=== PATIENT | female | born 1985 | race Two or more races ===

== ENCOUNTER 2024-04-03 19:45 | Emergency (ER) | payer SELFPAY ==
--- NOTE | 2024-04-03 20:41 | ER ---
Nurse's Notes [facility] Name: Rima Escobar Age: 39 yrs Sex: Female : 1985 Arrival Date: 04/03/2024 Time: 19:45 Bed 18 Private MD: Diagnosis: Alcohol abuse Presentation: 04/03 19:57 Chief complaint: EMS states: unresponsive upon arrival to scene. ETOH on board. Patient cp4 alert and talking upon arrival to ED. Coronavirus screen: Client denies travel out of the [place] in the last 14 days. At this time, the client does not indicate any symptoms associated with coronavirus-19. Ebola Screen: Patient negative for fever greater than or equal to 101.5 degrees Fahrenheit, and additional compatible Ebola Virus Disease symptoms Patient denies exposure to infectious person. Patient denies travel to an Ebola-affected area in the 21 days before illness onset. No symptoms or risks identified at this time. Initial Sepsis Screen: Does the patient meet any 2 criteria? HR > 90 bpm. No. Patient's initial sepsis screen is negative. Does the patient have a suspected source of infection? No. Patient's initial sepsis screen is negative. Risk Assessment: Do you want to hurt yourself or someone else? Patient reports no desire to harm self or others. Onset of symptoms was April 03, 2024. 19:57 Method Of Arrival: EMS: [facility] cp4 19:57 Acuity: DEEDEE 3 cp4 Triage Assessment: 19:59 General: Appears in no apparent distress. comfortable, Behavior is agitated. Pain: cp4 Denies pain. EENT: No deficits noted. Neuro: Level of Consciousness is awake, alert, obeys commands, Oriented to person, place, situation. Cardiovascular: No deficits noted. Respiratory: Airway is patent Respiratory effort is even, unlabored. GI: No deficits noted. : No deficits noted. Derm: No deficits noted. Musculoskeletal: No deficits noted. 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 - Infectious Disease History:: Denies. - Social history:: Smoking status: Patient denies any tobacco usage or history of. Screenin:01 [facility] ED Fall Risk Assessment (Adult) History of falling in the last 3 months, cp4 including since admission No falls in past 3 months (0 pts) Confusion or Disorientation No (0 pts) Intoxicated or Sedated Yes (3 pts) Impaired Gait No (0 pts) Mobility Assist Device Used No (0 pt) Altered Elimination No (0 pt) Score/Fall Risk Level 0 - 2 = Low Risk Oriented to surroundings, Maintained a safe environment, Assessed \\T\\ reinforced patient's understanding of fall precautions, Hourly rounding (assess needs \\T\\ fall precautionary measures) done. Abuse screen: Denies threats or abuse. Nutritional screening: No deficits noted. Tuberculosis screening: No symptoms or risk factors identified. Assessment: 20:01 Reassessment: No changes from previously documented assessment. cp4 20:02 Reassessment: Patient refusing treatment. Friend called to come pick her up per patient cp4 request. Psych: 20:41 [place] Suicide Severity Screening: In the past month, have you wished you were cp4 or wished you could go to sleep and not wake up? Patient responds "No." "In the past month, have you actually had any thoughts of killing yourself?" Patient responds "no." "In your lifetime, have you ever done anything, started to do anything, or prepared to do anything to end your life?" Patient responds "no.". Subjective: Patient's mood is irritable. Objective: Patient is uncooperative, belligerent, Speech is normal. Interventions: no person items. Safety Checks: Pt has been placed in a hallway bed/chair. Patient uses. Commitment: none. Vital Signs: 19:57 BP 97 / 69; Pulse 93; Resp 18; Temp 97.8; Pulse Ox 100% ; Pain 0/10; cp4 20:45 BP 98 / 56; Pulse 84; Resp 17; Temp 97.8; Pulse Ox 100% ; cp4 19:57 Pain Scale: Adult cp4 ED Course: 19:49 Patient arrived in ED. cp4 19:50 Melchor Reyna MD is Attending Physician. bo1 19:51 Valencia Ashby [facility]NP-C [facility]. kb 19:57 Sabrina Yusuf is Primary Nurse. cp4 19:59 Triage completed. cp4 19:59 Arm band placed on right wrist. Patient placed in an exam room, on a stretcher. cp4 20:01 Bed in low position. Call light in reach. Side rails up X2. Provided Education on: ETOH.cp4 20:01 No provider procedures requiring assistance completed. cp4 20:43 Patient did not have IV access during this emergency room visit. cp4 20:53 Primary Nurse role handed off by Sabrina Yusuf Administered Medications: 20:39 Not Given (Patient Refused): ns 0.9% 1000 ml IV at 1000 ml once cp4 Medication: 20:01 VIS not applicable for this client. cp4 Outcome: 20:43 AMA AMA form signed cp4 20:43 Condition: stable 20:43 Instructed on follow up and referral plans. 20:47 Patient left the ED. cp4 20:54 Discharge ordered by . angel 20:54 Patient left the ED. kb Signatures: Valencia Ashby, JEYSON-C INDUSTRIAL BOILERMAKER-Sabrina Joshua cp4 Dominiquei, MD LIZ Roche bo1
[2024-04-03 20:53] VITALS: TEMP 97.8; O2SAT 100
[2024-04-03 20:54] VITALS: BP 98/56
--- NOTE | 2024-04-03 20:54 | EDPHYS ---
Physician Documentation [facility] Name: Rima Escobar Age: 39 yrs Sex: Female : 1985 Arrival Date: 04/03/2024 Time: 19:45 Bed 18 Private MD: ED Physician Melchor Reyna HPI: 04/03 21:04 This 39 yrs old [place] Female presents to ER via EMS with complaints of ETOH Abuse. kb 21:04 Pt is a 39 year old female who presents for etoh intoxication. EMS reports they were kb toned out for unresponsive patient. Pt is awake and alert upon arrival to ED. . 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 - Infectious Disease History:: Denies. - Social history:: Smoking status: Patient denies any tobacco usage or history of. ROS: 21:01 Constitutional: As per HPI kb Exam: 21:01 Constitutional: This is a well developed, well nourished patient who is awake, alert, kb and in no acute distress. Head/Face: Normocephalic, atraumatic. ENT: Moist Mucous membranes Cardiovascular: Regular rate Respiratory: Respirations even and unlabored. No increased work of breathing. Talking in full sentences Skin: Warm, dry with normal turgor. Normal color. MS/ Extremity: Pulses equal, no cyanosis. Neurovascular intact. Full, normal range of motion. Neuro: Awake and alert, GCS 15, oriented to person, place, time, and situation. Moves all extremities. Vital Signs: 19:57 BP 97 / 69; Pulse 93; Resp 18; Temp 97.8; Pulse Ox 100% ; Pain 0/10; cp4 20:45 BP 98 / 56; Pulse 84; Resp 17; Temp 97.8; Pulse Ox 100% ; cp4 19:57 Pain Scale: Adult cp4 MDM: 19:50 Patient medically screened. bo1 20:30 Test considered but Not performed: Labs: serum labs considered but pt refuses all kb treatment. 21:01 Differential diagnosis: etoh intoxication, dehydration. Data reviewed: vital signs, kb nurses notes. Historians other than the Patient: EMS: [facility]. ED course: Pt is awake, alert and oriented x4. Pt refuses all treatment, states she was attending a wedding and didn't do anything wrong. States she would just like to go home. Friend at bedside to take her home. . 04/03 19:51 Order name: EKG; Complete Time: 19:52 kb Administered Medications: 20:39 Not Given (Patient Refused): ns 0.9% 1000 ml IV at 1000 ml once cp4 Disposition Summary: 04/03/24 20:54 Discharge Ordered Notes: Location: Home(04/03/24 20:54) kb Condition: Stable(04/03/24 20:54) kb Diagnosis - Alcohol abuse(04/03/24 20:54) kb Followup: kb - With: Emergency Department - When: As needed - Reason: Worsening of condition Followup: kb - With: Private Physician - When: 2 - 3 days - Reason: Recheck today's complaints, Continuance of care, Re-evaluation by your physician Forms: - Medication Reconciliation Form kb - Antibiotic Education kb - Prescription Opioid Use kb - Patient Portal Instructions kb - Leadership Thank You Letter kb Signatures: Dispatcher [employer] EDMS Valencia Ashby, HEAVY EQUIPMENT ENGINE MECHANIC-C HEAVY EQUIPMENT ENGINE MECHANIC-Sabrina Joshua cp4 Melchor Reyna MD MD bo1 Corrections: (The following items were deleted from the chart) 19:52 19:52 ACETAMINOPHEN+C.LAB.BRZ ordered. EDMS EDMS 19:52 19:52 BASIC METABOLIC PANEL+C.LAB.BRZ ordered. EDMS EDMS 19:52 19:52 CBC+H.LAB.BRZ ordered. EDMS EDMS 19:52 19:52 ETHANOL+C.LAB.BRZ ordered. EDMS EDMS 19:52 19:52 HEPATIC FUNCTION+C.LAB.BRZ ordered. EDMS EDMS 19:52 19:52 PROTIME (+INR)+COAG.LAB.BRZ ordered. EDMS EDMS 19:52 19:52 Test, Urine+UC.LAB.BRZ ordered. EDMS EDMS 19:52 19:52 PTT, ACTIVATED+COAG.LAB.BRZ ordered. EDMS EDMS 19:52 19:52 SALICYLATE+C.LAB.BRZ ordered. EDMS EDMS 19:52 19:52 Urinalysis+U.LAB.BRZ ordered. EDMS EDMS 19:52 19:52 URINE DRUG SCREEN+.LAB.BRZ ordered. EDMS EDMS :53 20:40 Home cp4 kb 20:53 20:40 Stable cp4 kb :53 20:53 new kb kb :53 20:53 are unchanged kb kb :53 20:53 Alcohol abuse kb kb
== END 2024-04-03 20:54 | disposition home or self-care (01) ==
LOC: ER 19:45 → EDSEX 19:45 → ER 20:47
DX: F10.10 Alcohol abuse, uncomplicated (principal)
CPT/HCPCS: 93005; 99284